=== PATIENT | female | born 1955 | race African-American/Black ===

== ENCOUNTER 2023-11-22 10:46 | Outpatient (CLI) | payer MEDICARE, OTHER ==
[2023-11-22 12:43] LABS: Prothrombin Time 10.3 sec (9.5-12.1)
[2023-11-22 12:45] LABS: #Basophils 0.1 10x3/uL (0.0-0.2); #Eosinphils 0.6 10x3/uL (0.0-0.5); #Monocytes 0.6 10x3/uL (0.0-1.1); #Neutrophils 2.7 10x3/uL (1.5-8.4); %Basophils 0.8 % (0.0-2.0); %Eosinophils 9.5 % (0.0-6.0); %Lymphocytes 33.7 % (18.0-47.0); %Monocytes 10.4 % (0.0-10.0); %Neutrophils 45.4 % (40.0-75.0); Hematocrit 34.3 % (34.9-44.5); Hemoglobin 11.7 g/dL (12.0-15.5); Mean Corpuscular HGB CONC 34.1 g/dL (32.0-36.0); Mean Corpuscular Hemoglobin 34.4 pg (27.0-33.0); Mean Corpuscular Volume 100.9 fl (81.6-98.3); Mean Platelet Volume 11.9 fl (7.4-10.4); Platelet Count 264 10x3/uL (150-450); RBC Distribution Width 13.1 % (11.5-14.5)
[2023-11-22 12:53] LABS: Anion Gap 13 mmol/L (10-20); BUN (Urea Nitrogen) 14 mg/dL (9.8-20.1); Calc. Creatinine Clearance 0 mL/min (70-130); Carbon Dioxide 24 mmol/L (23-31); Chloride 106 mmol/L (98-107); Estimated GFR 87; Glucose 84 mg/dL (80-115); Potassium 4.3 mmol/L (3.5-5.1); Sodium 139 mmol/L (136-145)
== END 2023-11-22 10:47 | disposition home or self-care (01) ==
LOC: LABBT 10:46
PROVIDERS: ATTEND Orthopaedic Surgery
DX: Z01.818 Encounter for other preprocedural examination (principal); M17.12 Unilateral primary osteoarthritis, left knee
CPT/HCPCS: 80048; 85025; 85610; 87081; 93005; 93010

== ENCOUNTER 2023-11-28 06:05 | Observation (INO) | payer MEDICARE, OTHER ==
[2023-11-28] MEDS ORDERED: Vancomycin 1 GM/200 ML (FROZEN) BAG ONE (08:04)
[2023-11-28] MEDS ORDERED: Tranexamic Acid 1,000 MG/10 ML VIAL ONE (08:04)
[2023-11-28] MEDS ORDERED: Sodium Chloride 0.9% 100 ML ONE ×2 (08:05→09:31)
[2023-11-28] MEDS ORDERED: Midazolam HCl 2 mg/2 ml Vial ONE (08:36)
[2023-11-28] MEDS ORDERED: Bupivacaine PF 0.5% 30 ML VIAL ONE (08:36)
[2023-11-28] MEDS ORDERED: fentaNYL 50 mcg/mL 1 mL Vial ONE ×4 (08:36→12:17)
[2023-11-28] MEDS ORDERED: PROPOFOL 20 ML ONE (08:43)
[2023-11-28] MEDS ORDERED: fentaNYL PF 100 MCG/2 ML SYRINGE ONE (08:43)
[2023-11-28] MEDS ORDERED: Lidocaine 1% PF 5 ML VIAL ONE (09:10)
[2023-11-28] MEDS ORDERED: EPINEPHrine 1 MG/ML VIAL ONE (09:25)
[2023-11-28] MEDS ORDERED: Bupivacaine 0.25% HCL 30 ML VIAL ONE (09:25)
[2023-11-28] MEDS ORDERED: fentaNYL 50 mcg/mL 1 mL Vial SLOW IVP PRN (09:25)
[2023-11-28] MEDS ORDERED: Promethazine HCl 25 MG/ML VIAL IM PRN ×3 (09:30→11:40)
[2023-11-28] MEDS ORDERED: Ondansetron PF 4 MG/2 ML Vial IVP PRN ×2 (09:30→11:40)
[2023-11-28] MEDS ORDERED: Ropivacaine 0.2% 550 ML 550 ML NERVE BLCK SCH (09:30)
[2023-11-28] MEDS ORDERED: HYDROcodone/Acetaminophen 10/325 mg Tablet PO PRN (09:30)
[2023-11-28] MEDS ORDERED: Zolpidem Tartrate 5 MG TAB PO PRN ×2 (09:30→11:40)
[2023-11-28] MEDS ORDERED: traMADol HCl 50 MG TAB PO PRN ×2 (09:30)
[2023-11-28] MEDS ORDERED: CEFAZOLIN 2 GM VIAL ONE (09:31)
[2023-11-28] MEDS ORDERED: ePHEDrine Sulfate 50 MG/10 ML VIAL ONE (10:13)
[2023-11-28] MEDS ORDERED: Dexamethasone 4 mg/ml Vial ONE (10:30)
[2023-11-28] MEDS ORDERED: Ondansetron PF 4 MG/2 ML Vial ONE ×2 (10:30→13:05)
[2023-11-28] MEDS ORDERED: Ketorolac Tromethamine 30 MG (1 mL) VIAL ONE (10:30)
[2023-11-28] MEDS ORDERED: Meperidine HCl/PF 25 MG/ML VIAL SLOW IVP PRN (10:41)
[2023-11-28] MEDS ORDERED: Ondansetron HCl/PF 4 MG/2 ML Vial IVP PRN (10:41)
[2023-11-28] MEDS ORDERED: HYDROmorphone 2 MG/ML VIAL SLOW IVP PRN (10:41)
[2023-11-28] MEDS ORDERED: diphenhydrAMINE 25 MG CAP PO PRN (11:40)
[2023-11-28] MEDS ORDERED: Acetaminophen 325 MG TAB PO PRN (11:40)
[2023-11-28] MEDS ORDERED: Metoclopramide HCl 10 MG (2 mL) VIAL ONE (13:05)
[2023-11-28] MEDS ORDERED: Albuterol 200 PUFF (6.7GM INHALER) INH PRN (14:25)
[2023-11-28] MEDS ORDERED: Ipratropium/Albuterol 3 ML NEB NEB PRN (14:27)
[2023-11-28] MEDS: Sodium Chloride 0.9% 1,000 ML IV SCH (14:32)
[2023-11-28] MEDS: Ketorolac Tromethamine 30 MG (1 mL) VIAL IVP SCH (14:32)
[2023-11-28] MEDS: CEFAZOLIN 2 GM in Sodium Chloride 0.9% 100 ML IVPB SCH (17:37)
[2023-11-28] MEDS: Aspirin 81 mg Enteric Coated Tablet PO SCH (20:54)
[2023-11-28] MEDS: Ferrous Gluconate 324 MG TAB PO SCH (20:54)
[2023-11-28] MEDS: HYDROcodone/Acetaminophen 10/325 mg Tablet PO PRN (20:54)
[2023-11-28] MEDS: Metoprolol Tartrate 25 MG TAB PO SCH (20:54)
[2023-11-28] MEDS: Senokot S 8.6-50 MG TAB PO SCH (20:54)
[2023-11-28] MEDS: Nortriptyline HCl 25 MG CAP PO SCH (20:54)
[2023-11-29 04:54] LABS: Hematocrit 25.9 % (36.0-47.0); Hemoglobin 8.6 g/dL (12.0-16.0); Mean Corpuscular HGB CONC 33.2 g/dL (32.0-36.0); Mean Corpuscular Volume 102.4 fl (78.0-98.0); Platelet Count 212 10x3/uL (130-400); RBC Distribution Width 12.6 % (11.5-14.5); Red Blood Cell (RBC) Count 2.53 mill/uL (4.20-5.40); White Blood Cell (WBC) Count 7.8 10x3/uL (4.8-10.8)
[2023-11-29] MEDS: Levothyroxine Sodium 100 MCG TAB PO SCH (05:23)
[2023-11-29 07:43] VITALS: BP 92/65; TEMP 99.1
[2023-11-29] MEDS: Lisinopril 10 MG TAB PO SCH (08:09)
[2023-11-29] MEDS: Multivitamin W/ Minerals 1 TAB PO SCH (08:09)
[2023-11-29] MEDS: Amlodipine 5 MG TAB PO SCH (08:09)
== END 2023-11-29 10:40 | disposition home or self-care (01) ==
LOC: SDC 06:05 → SJJU 13:50
PROVIDERS: ADMIT Orthopaedic Surgery; ATTEND Orthopaedic Surgery
PROC: 0SRD0JZ Replacement of Left Knee Joint with Synthetic Substitute, Open Approach (ICD-10-PCS; principal; 2023-11-28)
DX: M21.062 Valgus deformity, not elsewhere classified, left knee (principal); M17.12 Unilateral primary osteoarthritis, left knee; I10 Essential (primary) hypertension; J45.909 Unspecified asthma, uncomplicated; E03.9 Hypothyroidism, unspecified
CPT/HCPCS: 27447; 73560; 85027; 86850; 86870; 86900; 86901; 86902; 86905; 86920; 86922; 97110 ×2; 97116 ×2; 97530 ×2; A4306; C1713; C1776; J0171; J3010; J3370; 36415; J0665; J1100; J1885; J2250; J2405; J2704; J2765; J2795; J3490

== ENCOUNTER 2024-06-04 05:40 | Observation (INO) | payer MEDICARE, OTHER ==
[2024-06-04] MEDS ORDERED: Tranexamic Acid 1,000 MG/10 ML VIAL ONE (06:14)
[2024-06-04] MEDS ORDERED: Vancomycin 1 GM/200 ML (FROZEN) BAG ONE (06:14)
[2024-06-04] MEDS ORDERED: Sodium Chloride 0.9% 100 ML ONE ×2 (06:14→06:54)
[2024-06-04] MEDS ORDERED: Midazolam HCl 2 mg/2 ml Vial ONE ×2 (06:17→06:18)
[2024-06-04] MEDS ORDERED: Lidocaine 1% (PF) 30 ML VIAL ONE (06:17)
[2024-06-04] MEDS ORDERED: fentaNYL 50 mcg/mL 1 mL Vial ONE ×3 (06:17→09:49)
[2024-06-04] MEDS ORDERED: Bupivacaine PF 0.5% 30 ML VIAL ONE (06:17)
[2024-06-04] MEDS ORDERED: PROPOFOL 20 ML ONE (06:18)
[2024-06-04] MEDS ORDERED: fentaNYL PF 100 MCG/2 ML SYRINGE ONE (06:18)
[2024-06-04] MEDS ORDERED: Dexamethasone 4 mg/ml Vial ONE (06:20)
[2024-06-04] MEDS ORDERED: Ondansetron PF 4 MG/2 ML Vial ONE (06:20)
[2024-06-04] MEDS ORDERED: EPINEPHrine 1 MG/ML VIAL ONE (06:26)
[2024-06-04] MEDS ORDERED: Bupivacaine 0.25% HCL 30 ML VIAL ONE (06:26)
[2024-06-04] MEDS ORDERED: CEFAZOLIN 2 GM VIAL ONE (06:54)
[2024-06-04] MEDS ORDERED: PHENYLEPHRINE-NS 100 MCG/ML 10 ML SYRINGE ONE ×2 (07:32→08:39)
[2024-06-04] MEDS ORDERED: fentaNYL 50 mcg/mL 1 mL Vial SLOW IVP PRN (07:47)
[2024-06-04] MEDS ORDERED: Promethazine HCl 25 MG/ML VIAL IM PRN ×2 (08:00→10:02)
[2024-06-04] MEDS ORDERED: Ondansetron PF 4 MG/2 ML Vial IVP PRN ×2 (08:00→10:02)
[2024-06-04] MEDS ORDERED: traMADol HCl 50 MG TAB PO PRN ×2 (08:00)
[2024-06-04] MEDS ORDERED: Ropivacaine 0.2% 550 ML 550 ML NERVE BLCK SCH (08:00)
[2024-06-04] MEDS ORDERED: Zolpidem Tartrate 5 MG TAB PO PRN ×2 (08:00→10:02)
[2024-06-04] MEDS ORDERED: Meperidine HCl/PF 25 MG (1 mL) VIAL ONE (09:33)
[2024-06-04] MEDS ORDERED: Acetaminophen 325 MG TAB PO PRN (10:02)
[2024-06-04] MEDS ORDERED: diphenhydrAMINE 25 MG CAP PO PRN (10:02)
[2024-06-04] MEDS ORDERED: Ipratropium/Albuterol 3 ML NEB NEB PRN (11:34)
[2024-06-04] MEDS: Ketorolac Tromethamine 30 MG (1 mL) VIAL IVP SCH (12:34)
[2024-06-04] MEDS: Aspirin 81 mg Enteric Coated Tablet PO SCH ×2 (12:34→19:50)
[2024-06-04] MEDS: Senokot S 8.6-50 MG TAB PO SCH ×2 (12:34→19:50)
[2024-06-04] MEDS: Multivitamin W/ Minerals 1 TAB PO SCH (12:34)
[2024-06-04] MEDS: Ferrous Gluconate 324 MG TAB PO SCH ×2 (12:34→19:50)
[2024-06-04] MEDS: HYDROcodone/Acetaminophen 10/325 mg Tablet PO PRN (12:35)
[2024-06-04 13:03] VITALS: BMI 30.9
[2024-06-04] MEDS: CEFAZOLIN 2 GM in Sodium Chloride 0.9% 100 ML IVPB SCH (15:29)
[2024-06-04] MEDS: Nortriptyline HCl 25 MG CAP PO SCH (19:50)
[2024-06-05] MEDS: Levothyroxine Sodium 100 MCG TAB PO SCH (05:08)
[2024-06-05 05:12] LABS: Hematocrit 28.3 % (36.0-47.0); Hemoglobin 9.3 g/dL (12.0-16.0); Mean Corpuscular HGB CONC 32.9 g/dL (32.0-36.0); Mean Corpuscular Hemoglobin 34.1 pg (27.0-31.0); Mean Corpuscular Volume 103.7 fL (78.0-98.0); Platelet Count 200 10x3/uL (130-400); RBC Distribution Width 13.9 % (11.5-14.5); Red Blood Cell (RBC) Count 2.73 mill/uL (4.20-5.40)
[2024-06-05 08:16] VITALS: BP 123/75; TEMP 97.1
[2024-06-05] MEDS: Amlodipine 5 MG TAB PO SCH (09:41)
[2024-06-05] MEDS: Lisinopril 10 MG TAB PO SCH (09:42)
[2024-06-05] MEDS: Ferrous Sulfate 325 MG TAB PO SCH (09:42)
[2024-06-05] MEDS: Furosemide 40 MG TAB PO SCH (09:42)
[2024-06-05] MEDS: Multivitamin W/ Minerals 1 TAB PO SCH (09:42)
[2024-06-05] MEDS: HYDROcodone/Acetaminophen 10/325 mg Tablet PO PRN (10:36)
== END 2024-06-05 10:50 | disposition home or self-care (01) ==
LOC: SDC 05:40 → SURG A 11:22
PROVIDERS: ADMIT Orthopaedic Surgery; ATTEND Orthopaedic Surgery
PROC: 0SRC0JZ Replacement of Right Knee Joint with Synthetic Substitute, Open Approach (ICD-10-PCS; principal; 2024-06-04)
DX: M17.11 Unilateral primary osteoarthritis, right knee (principal); M21.161 Varus deformity, not elsewhere classified, right knee; Z88.0 Allergy status to penicillin
CPT/HCPCS: 0055T; 27447; 36415; 36416; 85027; A4306; C1713; C1776; C1889; J0171; J0665; J1100; J1885; J2001; J2175; J2250; J2405; J2704; J2795; J3010; J3370-JW